=== PATIENT | male | born 1995 | race Hispanic/Latino ===

== ENCOUNTER 2023-12-11 11:13 | Emergency (ER) | payer MEDICAID, OTHER ==
[~2023-12-11] VITALS: Ht 172.7 cm; Wt 77.1 kg
[2023-12-11] MEDS: IBUPROFEN 800 MG TAB PO ONE (14:09)
[2023-12-11] MEDS ORDERED: COLC0.6T73 PO (16:49)
[2023-12-11 16:54] VITALS: BP 131/85; PULSE 60; RESP 14; O2SAT 100
== END 2023-12-11 17:01 | disposition home or self-care (01) ==
LOC: EDH 11:13
DX: M10.9 Gout, unspecified (principal); M79.674 Pain in right toe(s)
CPT/HCPCS: 36415; 73630; 84550

== ENCOUNTER 2024-05-23 14:41 | Emergency (ER) | payer OTHER ==
[~2024-05-23] VITALS: Ht 172.7 cm; Wt 79.4 kg
[~2024-05-23 14:41] MED LIST: COLC0.6T73 PO
[2024-05-23 15:06] VITALS: BP 138/90; PULSE 62; RESP 19
[2024-05-23 15:32] LABS: SARS-CoV-2, RNA, NAAT POSITIVE SARS CoV-2 (NEGATIVE)
[2024-05-23 15:39] LABS: INFLUENZA TYPE A Negative For Type A (NEGATIVE); INFLUENZA TYPE B Negative For Type B (NEGATIVE)
== END 2024-05-23 16:03 | disposition home or self-care (01) ==
LOC: EDH 14:41
DX: U07.1 COVID-19 (principal)
CPT/HCPCS: 87635; 87804